=== PATIENT | male | born 1995 | race African-American/Black ===

== ENCOUNTER 2018-10-03 22:34 | Emergency (ER) | payer OTHER ==
[~2018-10-03] VITALS: Ht 185.4 cm; Wt 77.1 kg
[2018-10-03 23:03] LABS: URINE BILIRUBIN NEGATIVE (Negative); URINE BLOOD NEGATIVE (Negative); URINE CLARITY CLEAR; URINE COLOR YELLOW; URINE GLUCOSE-RANDOM* NEGATIVE (Negative); URINE KETONES NEGATIVE (Negative); URINE LEUKOCYTES-REFLEX NEGATIVE (Negative); URINE NITRITE-REFLEX NEGATIVE (Negative); URINE PROTEIN (DIPSTICK) NEGATIVE (Negative); URINE SPECIFIC GRAVITY >= 1.030 (1.005-1.035); URINE UROBILINOGEN 0.2 E.U./dl (0.2-1.0)
[2018-10-03 23:18] LABS: BASOPHILS 0.8 % (0.0-2.0); EOSINOPHILS 1.5 % (0.0-3.0); HEMATOCRIT 42.3 % (42.0-52.0); HEMOGLOBIN 14.3 gm/dL (14.0-18.0); LYMPHOCYTES 40.1 % (24.0-44.0); MCH 31.4 pg (26.0-34.0); MCHC 33.9 g/dL (28.0-37.0); MCV 92.5 fL (80.0-100.0); MONOCYTES 5.8 % (1.0-8.0); PLATELET COUNT 182 thou/uL (150-400); POLYS 51.8 % (36.0-66.0); RBC 4.57 mil/uL (4.50-6.00); RDW 15.2 % (10.5-14.5); WBC 7.8 thou/uL (4.0-11.0)
[2018-10-03 23:26] LABS: ANION GAP 11 mmol/L (7-16); BUN 14 mg/dL (7-18); CALCIUM 8.6 mg/dL (8.5-10.1); CHLORIDE 105 mmol/L (98-107); CO2 25 mmol/L (21-32); CREATININE 1.1 mg/dL (0.7-1.3); GLUCOSE 109 mg/dL (74-106); POTASSIUM 3.8 mmol/L (3.5-5.1); SODIUM 141 mmol/L (136-145)
[2018-10-03 23:32] LABS: LIPASE 85 U/L (73-393); SGOT 11 U/L (15-37); SGPT 21 U/L (30-65); TOTAL BILIRUBIN 0.3 mg/dL (<0.1-1.0); TOTAL PROTEIN 6.8 g/dL (6.4-8.2)
[2018-10-03 23:42] LABS: ALBUMIN < 0.6 g/dL (3.4-5.0)
[2018-10-04] MEDS ORDERED: PRILOSEC 20 MG20 MG PO (03:46)
[2018-10-04] MEDS ORDERED: LEVSIN0.125 MG PO (03:46)
[2018-10-04] MEDS ORDERED: ZOFRAN ODT4 MG DISSOLVE (03:46)
[2018-10-04 03:56] VITALS: BP 104/54
== END 2018-10-04 03:57 | disposition home or self-care (01) ==
LOC: ER 22:34
PROVIDERS: Emergency Medicine
DX: R10.30 Lower abdominal pain, unspecified (principal); R19.7 Diarrhea, unspecified; R11.0 Nausea